=== PATIENT | female | born 1945 | race Caucasian/White ===

== ENCOUNTER 2024-09-05 23:41 | Emergency (ER) | payer MEDICAID ==
[~2024-09-05] VITALS: Ht 154.9 cm; Wt 48.0 kg
[2024-09-06 00:05] VITALS: O2SAT 95
[2024-09-06 01:58] LABS: HEMATOCRIT. 38.9 % (36.0-48.0); HEMOGLOBIN. 12.9 g/dL (12.0-16.0); MEAN CORPUSCULAR HEMOGLOBIN 28.7 pg (28.0-32.0); MEAN CORPUSCULAR HGB CONC 33.2 g/dL (31.0-37.0); MEAN CORPUSCULAR VOLUME 86.3 fL (81.0-99.0); MEAN PLATELET VOLUME 8.1 fl (7.4-10.4); PLATELET 284 x1000/uL (130-400); RED CELL DISTRIBUTION WIDTH 14.2 % (11.6-14.6); WHITE BLOOD COUNT 12.2 x1000/uL (4.5-11.0)
[2024-09-06 02:03] LABS: CHLORIDE 105 mEq/L (98-107); POTASSIUM 3.2 mEq/L (3.5-5.1); SODIUM 138 mEq/L (136-145)
[2024-09-06 02:04] LABS: CARBON DIOXIDE 22 mEq/L (21-32)
[2024-09-06 02:05] LABS: CALCIUM 9.3 mg/dL (8.7-10.4)
[2024-09-06 02:09] LABS: CREATININE 0.9 mg/dL (0.6-1.0); GLUCOSE 178 mg/dL (70-105); UREA NITROGEN BLOOD 20 mg/dL (9-23)
[2024-09-06 02:16] LABS: DIFFERENTIAL COMMENT 1
[2024-09-06] MEDS: SODIUM CHLORIDE 0.9% 1,000 ML IV ONE (03:42)
[2024-09-06 03:45] VITALS: TEMP 98.5
[2024-09-06] MEDS: ACETAMINOPHEN 325MG TABLET PO STA (03:45)
[2024-09-06] MEDS: POTASSIUM CHLORIDE 20MEQ TABLET SR PO ONE (03:47)
[2024-09-06 04:10] LABS: TROPONIN I HIGH SENSITIVITY 9 ng/L (3.0-34)
[2024-09-06] MEDS ORDERED: LEVO750T68 MT (05:25)
[2024-09-06 05:47] VITALS: BP 139/77; PULSE 99; RESP 18; O2SAT 100
[2024-09-06 07:24] LABS: PLATELET ESTIMATE NORMAL
== END 2024-09-06 05:47 | disposition home or self-care (01) ==
LOC: ER 09-06 00:02
DX: J18.9 Pneumonia, unspecified organism (principal); F03.90 Unspecified dementia, unspecified severity, without behavioral disturbance, psychotic disturbance, mood disturbance, and anxiety; I10 Essential (primary) hypertension
CPT/HCPCS: 99285; 96360; 71045; 96361; 80048; 83880; 85025; 84484; 36415; 93005; J7030